=== PATIENT | female | born 1985 | race Caucasian/White ===

== ENCOUNTER 2021-05-18 15:26 | Inpatient (IN) | payer OTHER ==
[~2021-05-18] VITALS: Ht 167.6 cm; Wt 100.7 kg
--- NOTE | 2021-05-19 09:56 | PR ---
[facility] [address] [facility] [place], [place] [address] Signed PP Progress Notes Datetime Report Generated by CPN: 05/19/2021 09:56 SUBJECTIVE: [id number] Pain: Within Normal Limits Nausea/Vomiting: Denies Vital Signs: [id number] Vital Signs: Reviewed Notable Details: temp normalized soon after delivery EXAM: Ongoing Cardiovascular: Not Done Respiratory: Not Done Abdomen/Uterus: Abnormal Lochia: Normal Vulva/Perineum: Not Done Breasts: Not Done CVA Tenderness: Not Done Extremities: Normal Incision: Not Applicable Progress: Normal Exam Comments: Fundus firm, NT @ U-2. H/H 11.5/35, WBC 36.7, plat 171k S79/B9/L3/M9 Na 137, K 3.1, Cl 102, CO2 16, BUN/Cr 11/1.13, glu 145 Lactic Acid 5.4 IMPRESSION/PLAN/PROCEDURES: [id number] Impression: Endometritis Other Impression: evidence of sepsis by lab Other Plans: add clindamycin, repeat BMP, lactic acid Progress Notes: She is feeling well but she has very abnormal labs. Will repeat lactic acid and BMP as well as add clindamycin IV. Signing Physician: Emani Smyth MD Copies: ~ *Electronically Signed* 05/19/21 0956 EMANI SMYTH MD PATIENT NAME: KEN LANG PROGRESS NOTE DATE OF : 85 PHYSICIAN: EMANI SMYTH MD RPT #: [id number] REPORT IS CONFIDENTIAL AND NOT TO BE RELEASED WITHOUT AUTHORIZATION
--- NOTE | 2021-05-20 10:09 | PR ---
[facility] [address] [place], [place] [address] Signed PP Progress Notes Datetime Report Generated by CPN: 05/20/2021 10:09 SUBJECTIVE: [id number] Pain: Within Normal Limits Nausea/Vomiting: Denies Vital Signs: [id number] Vital Signs: Reviewed; Within Normal Limits Notable Details: temp normalized soon after delivery EXAM: Ongoing Cardiovascular: Not Done Respiratory: Not Done Abdomen/Uterus: Abnormal Lochia: Normal Vulva/Perineum: Not Done Breasts: Not Done CVA Tenderness: Not Done Extremities: Normal Incision: Not Applicable Progress: Normal Exam Comments: Fundus firm, NT @ U-2. H/H 12/37.3, WBC 21.3, S86/L8/M5/B1 plat 184k Pos blood culture with GPC in clusters Cultures/gram stain NOT done on placenta as yet IMPRESSION/PLAN/PROCEDURES: [id number] Impression: Endometritis Other Impression: Pos blood culture Plan: Continue Present Management; Antibiotic Therapy Other Plans: add clindamycin, repeat BMP, lactic acid Progress Notes: Doing well though with positive blood culture. Placental cultures/gram stain now pending. Her WBC count is declining and she is now afebrile. Will continue present therapy for now pending further results. Signing Physician: Emani Smyth MD Copies: *Electronically Signed* 05/20/21 1009 EMANI SMYTH MD PATIENT NAME: KEN LANG PROGRESS NOTE DATE OF : 85 PHYSICIAN: EMANI SMYTH MD RPT #: [id number] REPORT IS CONFIDENTIAL AND NOT TO BE RELEASED WITHOUT AUTHORIZATION [address] [address] Signed ~ *Electronically Signed* 05/20/21 1009 EMANI SMYTH MD PATIENT NAME: KEN LANG PROGRESS NOTE DATE OF : 85 PHYSICIAN: EMANI SMYTH MD RPT #: [id number] REPORT IS CONFIDENTIAL AND NOT TO BE RELEASED WITHOUT AUTHORIZATION
--- NOTE | 2021-05-21 12:45 | NUR ---
Spoke with Dr. Smyth in my office. Pt has + MSSA blood cultures. Will need IV antibiotics on dc. Let her know I will send and initial chart to [facility]. is awaiting final cultures to write orders. Called [facility] and they due to take the OHP. Called [facility] and they take this insurance. Faxed OB notes, blood cultures, med list, and face sheet. The person I spoke with stated they do not have a nurse in this area. FAxed above chart to [facility] and called and spoke with Vianey Elena. She states they take OHP and they will prioritize her if she goes home on Fri for education of IV antibiotics.
--- NOTE | 2021-05-21 13:06 | PR ---
[facility] [address] [place], [place] [address] Signed PP Progress Notes Datetime Report Generated by LOYDA: 05/21/2021 13:05 SUBJECTIVE: [id number] Pain: Within Normal Limits Nausea/Vomiting: Denies Vital Signs: [id number] Vital Signs: Reviewed; Within Normal Limits Notable Details: temp normalized soon after delivery EXAM: Ongoing Cardiovascular: Not Done Respiratory: Not Done Abdomen/Uterus: Abnormal Lochia: Normal Vulva/Perineum: Not Done Breasts: Not Done CVA Tenderness: Not Done Extremities: Normal Incision: Not Applicable Progress: Normal Exam Comments: Fundus firm, NT @ U-2. H/H 11.9/36.3, WBC 11.2 S 73.8, L 15.2, M 8.7, plat 178k Na 137, K 3.7, Cl 105, CO2 23, BUN/Creat 9/0.71, Glu 73, Ca 9.1 Blood culture Pos MSSA Placenta Gram stain GPC--few on maternal side, many on side IMPRESSION/PLAN/PROCEDURES: [id number] Impression: Normal Progression; Endometritis Other Impression: Bacteremia with MSSA Plan: Antibiotic Therapy Other Plans: add clindamycin, repeat BMP, lactic acid Procedures: Antibiotics Progress Notes: Pt with pos blood culture for MSSA though clinically improving on her current antibiotics--fever resolved and WBC returning to normal. Will repeat blood culture now and will begin working towards outpt treatment with continued IV antibiotics for 2 wks after neg blood culture. Discussed with pt and she understands plan of care. Signing Physician: Russ Smyth MD *Electronically Signed* 05/21/21 1305 RUSS SMYTH MD PATIENT NAME: LANGAURELIAKEN NADEGE PROGRESS NOTE DATE OF : 85 PHYSICIAN: RUSS SMYTH MD RPT #: [id number] REPORT IS CONFIDENTIAL AND NOT TO BE RELEASED WITHOUT AUTHORIZATION [address] [address] Signed Copies: ~ *Electronically Signed* 05/21/21 1305 RUSS SMYTH MD PATIENT NAME: KEN LANG PROGRESS NOTE DATE OF : 85 PHYSICIAN: RUSS SMYTH MD RPT #: [id number] REPORT IS CONFIDENTIAL AND NOT TO BE RELEASED WITHOUT AUTHORIZATION
--- NOTE | 2021-05-21 14:53 | NUR ---
Received a call from [facility]. They received the chart and have entered pt in the system. Updated I am awaiting orders from Dr. Smyth and will fax when she completes. [facility] states they called [facility] to provide education and let them know I also faxed them her chart.
--- NOTE | 2021-05-21 18:04 | NUR ---
MIDLINE INSERTION NOTE: ASKED BY DR. ROBERTO TO EVALUATE PATIENT FOR POTENTIAL PICC/MIDLINE PLACEMENT DUE TO NEED FOR IV ABX FOR UP TO 2 WEEKS AN OUTPATIENT. PATIENT HAS HAD POSITIVE BLOOD CULTURE RESULTS FROM THE 05/18/21 BLOOD DRAW. AFTER INTERVIEWING THE PATIENT AND REVIEWING THE CHART, NO ABSOLUTE CONTRAINDICATIONS WERE IDENTIFIED. DISCUSSION WITH DR. ROBERTO REVEALED THAT PATIENT MAY NOT NEED ANTIBIOTICS LONGER THAN 2 WEEKS, THEREFORE A MIDLINE WAS RECOMMENEDED BY THIS RN FOR PATIENT'S NEEDS. PATIENT GAVE VERBAL CONSENT TO THIS PROCEDURE AND HAD OPPORTUNITY TO ASK QUESTIONS ABOUT THIS PROCEDURE AND WISHES TO CONTINUE. PT'S WAS ALSO IN THE ROOM DURING THIS CONVERSATION. PATIENT WAS THEN TAKEN TO CCU TO HAVE MIDLINE PLACED. PT HAD A PREFERENCE TO HAVE HER MIDLINE PLACED IN HER LEFT ARM IF POSSIBLE, AND THEREFORE HER LEFT ARM WAS EVALUATED FIRST. PATIENT'S CEPHALIC VEIN AND BASILIC WERE BOTH EASILY IDENTIFIED, WITH THE BASILIC BEING THE LARGER OF THE 2 CATHETERS, AND ESTIMATING THAT A 4FR CATHETER WOULD ONLY TAKE UP 28% OF THE VEIN DIAMETER. STERILE PROCEDURE WAS FOLLOWED AND HER LEFT ARM WAS PREPPED FOLLOWING CDC GUIDELINES FOR STERILE PROCEDURE. PATIENT'S BASILIC VEIN WAS ACCESSED EASILY ON THE FIRST ATTEMPT AND THREADED INTO CATHETER. BRISK, DARK, NON PULSATILE BLOOD WAS NOTED. NEXT THE GUIDEWIRE WAS EASILY ADVANCED, FOLLOWED BY THE INTRODUCER. AFTER REMOVING THE GUIDEWIRE, THE MIDLINE WAS THEN INSERTED. PATIENT'S ARM WAS MEASURED PRIOR AND THE CATHETER WAS LEFT AT 20 CM LENGTH. CATHETER EASILY ADVANCED INTO VEIN. 0 CM LEFT EXPOSED. BIO PATCH PLACED OVER INSERTION SITE AND A SECUREMENT DEVICE IN PLACE. STERILE DRESSING PLACED OVER TOP. TRACYETN'S ARM CIRCUMFERENCE WAS MEASURED 10 CM ABOVE AC SITE AND FOUND TO BE 34 CM. PATIENT WAS GIVEN EDUCATION MATERIAL AND TAUGHT ABOUT CARING FOR HER MIDLINE AT HOME, HOWEVER MORE EDUCATION WILL BE NECESSARY UPON DISCHARGE. PATIENT WAS SHOWED HOW TO FLUSH MIDLINE. REPORT GIVEN TO OMID KOCH CARING FOR HER.
--- NOTE | 2021-05-21 19:32 | NUR ---
pt was swabbed for covid 19
--- NOTE | 2021-05-22 08:12 | PR ---
[facility] [address] [place], [place] [address] Signed PP Progress Notes Datetime Report Generated by CPN: 05/22/2021 08:12 SUBJECTIVE: [id number] Pain: Within Normal Limits Nausea/Vomiting: Denies Vital Signs: [id number] Vital Signs: Reviewed; Within Normal Limits Notable Details: temp normalized soon after delivery EXAM: Ongoing Cardiovascular: Normal Respiratory: Normal Abdomen/Uterus: Abnormal Lochia: Normal Vulva/Perineum: Not Done Breasts: Not Done CVA Tenderness: Not Done Extremities: Normal Incision: Not Applicable Progress: Normal Exam Comments: Fundus firm, NT @ U-2. H/H 12.2/37.5, WBC 10 S52/B3?L25/M16/E4, plat 190k Placental cultures--Pos Staph and Klebsiella on side, staph on maternal side IMPRESSION/PLAN/PROCEDURES: [id number] Impression: Normal Progression; Endometritis Other Impression: Pos blood culture MSSA Plan: Continue Present Management Other Plans: add clindamycin, repeat BMP, lactic acid Procedures: Antibiotics Progress Notes: Overall doing well. Awaiting 2nd set of blood cultures done yesterday to be sure these are negative as well as sensitivities from original positive blood cultures to arrange discharge with home IV antibiotics. Signing Physician: Emnai Smyth MD Copies: *Electronically Signed* 05/22/[address] EMANI SMYTH MD PATIENT NAME: KEN LANG PROGRESS NOTE DATE OF : 85 PHYSICIAN: EMANI SMYTH MD RPT #: [id number] REPORT IS CONFIDENTIAL AND NOT TO BE RELEASED WITHOUT AUTHORIZATION [facility] [address] [place] [address] Signed ~ *Electronically Signed* 05/22/21811 EMANI SMYTH MD PATIENT NAME: KEN LANG PROGRESS NOTE DATE OF : 85 PHYSICIAN: EMANI SMYTH MD RPT #: [id number] REPORT IS CONFIDENTIAL AND NOT TO BE RELEASED WITHOUT AUTHORIZATION
--- NOTE | 2021-05-23 09:10 | PR ---
[facility] [address] [place], [place] [address] Signed PP Progress Notes Datetime Report Generated by CPN: 05/23/2021 09:10 SUBJECTIVE: [id number] Pain: Within Normal Limits Pain Comments: c/o mild left hip pain Nausea/Vomiting: Denies Vital Signs: [id number] Vital Signs: Reviewed; Within Normal Limits Notable Details: temp normalized soon after delivery EXAM: Ongoing Cardiovascular: Normal Respiratory: Normal Abdomen/Uterus: Abnormal Lochia: Normal Vulva/Perineum: Not Done Breasts: Not Done CVA Tenderness: Not Done Extremities: Normal Incision: Not Applicable Progress: Normal Exam Comments: Fundus firm, NT @ U-2. H/H 13.3/40.1, WBC 11.8 S66/B4/L26/M3/E1, plat 228k Localized erythema on left chest Blood culture from 05/18 pos MSSA with Sensitivities Blood culture from 05/21 pos GPC in clusters pending ID IMPRESSION/PLAN/PROCEDURES: [id number] Impression: Normal Progression; Endometritis Other Impression: Bacteremia Plan: Continue Present Management Other Plans: Hospitalist consult, cardiac ECHO, hip XRay Procedures: Antibiotics Progress Notes: Bacteremia continues on treatment which will necessarily extend her need for antibiotics. Will try to exclude other sources for ongoing infection with ECHO and hip XRay. Will arrange for consult as well with hospitalist too. Signing Physician: Emani Smyth MD *Electronically Signed* 05/23/21 0910 EMANI SMYTH MD PATIENT NAME: KEN LANG PROGRESS NOTE DATE OF : 85 PHYSICIAN: EMANI SMYTH MD RPT #: [id number] REPORT IS CONFIDENTIAL AND NOT TO BE RELEASED WITHOUT AUTHORIZATION [address] [address] Signed Copies: ~ *Electronically Signed* 05/23/21 0910 EMANI SMYTH MD PATIENT NAME: KEN LANG PROGRESS NOTE DATE OF : 85 PHYSICIAN: EMANI SMYTH MD RPT #: [id number] REPORT IS CONFIDENTIAL AND NOT TO BE RELEASED WITHOUT AUTHORIZATION
--- NOTE | 2021-05-24 15:04 | PATH ---
[facility] [address] [place], [place] [address] Signed SPECIMEN(S): A PLACENTA SPECIMEN SOURCE: A. PLACENTA CLINICAL HISTORY: Mother's age: 36. OB history: A0. Gestational age: 39. 's weight: 6 lb., 14 oz. score: 8/8. Rh positive. Maternal serologies: Rubella immune, GBS negative. Specific issues of concern: Maternal/ temp. COVID in . FINAL PATHOLOGIC DIAGNOSIS: Placenta, delivery: - Mature aguirre placenta with three-vessel umbilical cord (458.6 grams; 25-50th percentile for reported 39 weeks gestational age). - Acute chorioamnionitis (grade 1/2; stage 2/3) with inflammatory response in the chorionic vessels, umbilical vein, and both umbilical arteries (grade 1/2; stage 2/3). - Focal distal villous hypoplasia. - Avascular villi, small to intermediate foci. BRP:cml:C2NR MICROSCOPIC EXAMINATION: Histologic sections of all submitted blocks are examined by light microscopy. These findings, together with the gross examination, support the pathologic diagnosis. GROSS DESCRIPTION: The specimen, labeled "KH, placenta," is received fresh and placed in formalin and consists of a aguirre discoid placenta with the following parameters: Umbilical cord: Insertion = velamentous piece, 2.1 cm from the nearest peripheral edge of the placental disc, measurement 15.2 x 1.7 cm; trivascular. Cord coiling index (per 10 cm): Grossly indeterminate. Lesions: The cord is slightly edematous. Membranes: Insertion site: Marginal, driver/translucent, rupture site grossly indeterminate. Intact. Other: Not grossly identified. Chorionic Plate: Normal radiating vascular pattern, blue-purple and shiny. Lesions: Not grossly identified. Other: Not grossly identified. Maternal Surface: Normal cotyledons, intact. Lesions: The maternal surface has multiple areas of adherent blood clot from 0.2 up to 2.1 cm in greatest dimension and comprising approximately less than PATIENT NAME: KEN LANG PATHOLOGY DATE OF : 85 REPORT #: [id number] PHYSICIAN: SAMIR MEDRANO PCP: ERICH RODRÍGUEZ MD REPORT IS CONFIDENTIAL AND NOT TO BE RELEASED WITHOUT AUTHORIZATION [facility] [address] [place], [place] [address] Signed 5% of the disc. Additionally the maternal surface has multiple, focal areas of driver-white consolidation from 0.2 up to 1.8 cm in greatest dimension and comprising less than 5% of the surface. Measurement: 23.6 x 16.7 x 1.8 cm. Weight (trimmed): 458.6 g Cut Surface: Maroon and spongy. Lesions: Focal areas of driver-white consolidation from 0.2 up to 1.1 cm in greatest dimension and comprising less than 5% of the parenchyma. There is a consolidation are mostly associated with the maternal surface consolidation. Basal plate fibrin 0.1 cm in thickness. Other Findings: Not grossly identified. Cassette Summary: (A1) membranes and umbilical cord (A2) central section of placenta (A3) eccentric section of placenta (A4) eccentric section of placenta AI (under the direct supervision of a pathologist) The Gross Description was prepared using a voice recognition system. The report was reviewed for accuracy; however, sound-alike word errors, addition and/or deletions may occur. If there is any question about this report, please contact Client Services. PERFORMING LABORATORY: The technical component was performed by [facility], [address] [place] [id number] (General Freight Agent: Kimberly Rede MD; CLIA# [id number]). Professional interpretation was performed by [facility], [facility], [address] [place] [address] (CLIA# [id number]). Diagnostician: Osmel Carrasco MD Pathologist Electronically Signed 05/24/2021 Copies: ~ PATIENT NAME: KEN LANG PATHOLOGY DATE OF : 85 REPORT #: [id number] PHYSICIAN: [facility] PCP: ERICH RODRÍGUEZ MD REPORT IS CONFIDENTIAL AND NOT TO BE RELEASED WITHOUT AUTHORIZATION
--- NOTE | 2021-05-25 09:36 | PR ---
[facility] [address] [place], [place] [address] Signed PP Progress Notes Datetime Report Generated by CPN: 05/25/2021 09:36 SUBJECTIVE: [id number] Pain: Within Normal Limits Pain Comments: c/o mild left hip pain Nausea/Vomiting: Denies Vital Signs: [id number] Vital Signs: Reviewed; Within Normal Limits Notable Details: temp normalized soon after delivery EXAM: Ongoing Cardiovascular: Normal Respiratory: Normal Abdomen/Uterus: Abnormal Lochia: Normal Vulva/Perineum: Not Done Breasts: Not Done CVA Tenderness: Not Done Extremities: Normal Incision: Not Applicable Progress: Normal Exam Comments: Fundus firm, NT @ U-2. H/H 12.4/38.1, WBC 8.2 S64/L22 IMPRESSION/PLAN/PROCEDURES: [id number] Impression: Normal Progression Other Impression: MSSA bacteremia Plan: Antibiotic Therapy; Discharge Other Plans: Hospitalist consult, cardiac ECHO, hip XRay Procedures: Antibiotics Progress Notes: She is doing well clinically. The blood culture from 05/23 is still pending but given the fact that it was a contaminant I feel she can be discharged to complete her antibiotic treatment as an outpt. The change to Rocephin will make it much easier to dose at home and should be effective as well. Signing Physician: Emani Smyth MD Copies: *Electronically Signed* 05/25/21 0936 EMANI SMYTH MD PATIENT NAME: KEN LANG PROGRESS NOTE DATE OF : 85 PHYSICIAN: EMANI SMYTH MD RPT #: [id number] REPORT IS CONFIDENTIAL AND NOT TO BE RELEASED WITHOUT AUTHORIZATION [address] [place], [place] [address] Signed ~ *Electronically Signed* 05/25/21 0936 EMANI SMYTH MD PATIENT NAME: KEN LANG PROGRESS NOTE DATE OF : 85 PHYSICIAN: EMANI SMYTH MD RPT #: [id number] REPORT IS CONFIDENTIAL AND NOT TO BE RELEASED WITHOUT AUTHORIZATION
--- NOTE | 2021-05-25 10:58 | NUR ---
Spoke with Dr Smyth yesterday and today. She now has cultures and plans on pt dc today. Reprinted orders and F2F and took to Dr. Smyth in OB. Asked she return them to me and I will fax to [facility] and to [place]. Called Ghislaine from [facility] and was unable to reach at [phone]. Message to call direct to [facility] richy at [phone]. Spoke with Camilla and she is aware of this pt. UPdated she will dc today. Asked if they can have medication in [place] by 4 pm. They will call me back.
--- NOTE | 2021-05-25 11:07 | NUR ---
Face sheet, orders, H&P, progress notes, F2F faxed to [facility]. Attempted to call and left a message as they are in a meeting.
--- NOTE | 2021-06-03 09:12 | DS ---
[facility] [address] [place], [place] [address] Signed ADMISSION DATE: 05/18/2021 DISCHARGE DATE: 05/25/2021 HISTORY: The patient is a 36-year-old female, 4, para 3, who was admitted late afternoon on May 18 and had a precipitous delivery of a term boy. However, immediately following delivery, she was noted to be febrile as was the baby. At this point, placenta was sent for cultures as well as pathology. The patient received IV antibiotics after having blood cultures x2 done. She was started on IV Gent and ampicillin for presumed chorioamnionitis. The next morning, it was found that the lactic acid from the night before was elevated at 5.4, and her white count was increased to 36,000 the morning after delivery. She had a significant left shift. Blood cultures done at delivery were also positive by that time. IV clindamycin was added to her regimen. A repeat lactic acid was done, which was 0.9. The patient had never been hypotensive or tachycardic during her episode of fever. She had been afebrile almost immediately since her delivery. However, with her positive blood cultures, it was determined to continue with her IV antibiotics. She eventually grew out methicillin-sensitive Staph in her blood cultures. The placental cultures also revealed Staph as well as Klebsiella. A midline IV was placed after her positive blood culture as it would be necessary to continue IV antibiotics for some time. Her white count continued to decrease into the normal zone. A follow up blood culture done on May 21, was read as positive at 24 hrs. It was determined eventually to be a contaminant after this was ID'd. Another set of blood cultures were done on May 23 because of the initial positive from the set on May 21. She did have a transthoracic ECHO which was normal. She also had a left hip X-Ray secondary to an episode of pain which was also normal. No other foci of infection was identified during her hospital stay. Because of the positive blood culture for MSSA, presumably from the placenta and her delivery, it was felt that two weeks of IV antibiotics should be sufficient for control of her bacteremia. After the ID on the MSSA was done, her antibiotics were switched from the triples to Ancef 2 g q.8 h. She is being discharged home on ceftriaxone 2 g q.24 hours as well as her heparin for her midline IV. PROCEDURES: 1. Spontaneous vaginal delivery. 2. Repair of second-degree perineal laceration. 3. Midline catheter placement. FINAL DIAGNOSIS: MSSA bacteremia. Electronically Signed By: RUSS ROBERTO MD 06/03/21 0912 PATIENT NAME: KEN LANG DISCHARGE SUMMARY DATE OF : 85 REPORT #: [id number] PHYSICIAN: RUSS ROBERTO MD PCP: ERICH RODRÍGUEZ MD REPORT IS CONFIDENTIAL AND NOT TO BE RELEASED WITHOUT AUTHORIZATION [address] [address] Signed Spontaneous vaginal delivery Second degree perineal laceration Precipitous labor MD ANNE MARIE Vargas/JANL /[id number] Copies: ~ Electronically Signed By: RUSS ROBERTO MD 06/03/[address] PATIENT NAME: KEN LANG DISCHARGE SUMMARY DATE OF : 85 REPORT #: [id number] PHYSICIAN: RUSS ROBERTO MD PCP: ERICH RODRÍGUEZ MD REPORT IS CONFIDENTIAL AND NOT TO BE RELEASED WITHOUT AUTHORIZATION
== END 2021-05-25 15:30 | disposition home or self-care (01) | DRG 805 ==
LOC: FBCO 15:26 → FBC 15:40
PROVIDERS: ADMIT Obstetrics & Gynecology; ATTEND Obstetrics & Gynecology
PROC: 10E0XZZ Delivery of Products of Conception, External Approach (ICD-10-PCS; principal; 2021-05-18)
PROC: 0KQM0ZZ Repair Perineum Muscle, Open Approach (ICD-10-PCS; 2021-05-18)
PROC: 06HN33Z Insertion of Infusion Device into Left Femoral Vein, Percutaneous Approach (ICD-10-PCS; 2021-05-21)
DX: O99.214 Obesity complicating childbirth (principal); O41.1220 Chorioamnionitis, second trimester, not applicable or unspecified; Z37.0 Single live birth; R78.81 Bacteremia; O13.4 Gestational [pregnancy-induced] hypertension without significant proteinuria, complicating childbirth; O75.3 Other infection during labor; O86.12 Endometritis following delivery; O70.1 Second degree perineal laceration during delivery; E66.9 Obesity, unspecified; Z3A.39 39 weeks gestation of pregnancy; B95.61 Methicillin susceptible Staphylococcus aureus infection as the cause of diseases classified elsewhere; O69.81X0 Labor and delivery complicated by cord around neck, without compression, not applicable or unspecified
CPT/HCPCS: 36569; 73502; 80048; 80053; 80170; 83605; 85007; 85025; 85027; 87040; 87070; 87075; 87076; 87077; 87186; 87205; 88307; 93306; A9270; C9803; J0290; J0690; J0696; J1580; J2590; J7060; J7121